=== PATIENT | female | born 1980 | race Two or more races ===

== ENCOUNTER 2021-08-02 06:54 | Day surgery (SDC) | payer OTHER ==
[~2021-08-02 06:54] MED LIST: HUMALOG100 UNIT/2; HUMULIN N100 UNIT/2; SYNTHROID125 MCG PO
== END 2021-08-02 13:35 | disposition home or self-care (01) ==
LOC: CIR.AMB 06:54
PROVIDERS: ATTEND Specialist
DX: O02.1 Missed abortion (principal); Z20.822 Contact with and (suspected) exposure to COVID-19